=== PATIENT | male | born 1995 | race Two or more races ===

== ENCOUNTER 2020-09-06 20:44 | Emergency (ER) | payer OTHER ==
[~2020-09-06] VITALS: Ht 177.8 cm; Wt 72.9 kg
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
[2020-09-06] MEDS ORDERED: LIDOCAINE/EPI/TETRACAINE TOPICAL GEL 3 ML. TP ONE (21:30)
[2020-09-06 22:25] VITALS: BP 123/78
== END 2020-09-06 22:25 | disposition home or self-care (01) ==
LOC: ER 20:44
DX: S01.01XA Laceration without foreign body of scalp, initial encounter (principal); Y04.0XXA Assault by unarmed brawl or fight, initial encounter; Y93.89 Activity, other specified; Y92.148 Other place in prison as the place of occurrence of the external cause; Y99.0 Civilian activity done for income or pay
CPT/HCPCS: 12001; 99282

== ENCOUNTER 2020-09-16 10:12 | Emergency (ER) | payer OTHER ==
[~2020-09-16] VITALS: Ht 177.8 cm; Wt 72.9 kg
[2020-09-16 10:21] VITALS: BP 120/62
== END 2020-09-16 10:25 | disposition home or self-care (01) ==
LOC: ER 10:12
DX: S01.01XD Laceration without foreign body of scalp, subsequent encounter (principal); X58.XXXD Exposure to other specified factors, subsequent encounter
CPT/HCPCS: 99281